=== PATIENT | male | born 1945 | race Caucasian/White ===

== ENCOUNTER → 2019-04-04 | Outpatient (CLI) | payer MEDICARE, OTHER ==
--- NOTE | 2019-04-04 15:45 | US ---
EXAMINATION TYPE: US kidneys/renal and bladder DATE OF EXAM: 04/04/2019 COMPARISON: CT 08/12/10 CLINICAL HISTORY: R31.1 microhematuria. EXAM MEASUREMENTS: Right Kidney: 13.3 x 6.9 x 4.9 cm Left Kidney: 14.9 x 6.8 x 6.3 cm Post Void Residual Volume: 204.6 mL Right Kidney: Multiple cysts throughout entire kidney. Largest = 8.1 x 5.1 x 3.7 cm Left Kidney: Multiple cysts throughout entire kidney. Largest = 9.3 x 9.1 x 9.1 cm Bladder: wnl Bilateral Jets seen: Yes Normal Post Void Residual: No. Possibly due to hyperdistended bladder prevoid. There is no evidence for hydronephrosis at this point in time. No nephrolithiasis is seen. No solid masses are identified. The urinary bladder is anechoic. Bilateral ureteral jets are seen. Difficult to evaluate renal texture due to large amounts of renal cysts bilaterally. IMPRESSION: Multiple cystic lesions seen bilaterally. No solid masses identified.
== END | disposition home or self-care (01) ==
LOC: RADUSWWP 15:03
PROVIDERS: ATTEND Urology
DX: N28.1 Cyst of kidney, acquired (principal)
CPT/HCPCS: 76770

== ENCOUNTER → 2019-08-19 | Outpatient (CLI) | payer MEDICARE | END | disposition home or self-care (01) | LOC: LABWHC1 13:57 | PROVIDERS: ATTEND Urology | DX: D40.0 Neoplasm of uncertain behavior of prostate (principal) | CPT/HCPCS: 36415; 84153 ==

== ENCOUNTER → 2021-08-06 | Outpatient (CLI) | payer MEDICARE ==
[2021-08-06 15:02] LABS: ALT 14 U/L (10-49); AST 23 U/L (14-35); Chol/HDL Ratio 3.25 Ratio; LDL Cholesterol,Calculated 72.2 mg/dL (0.0-131.0); VLDL Calculation 15.66 mg/dL (5.00-40.00)
== END | disposition home or self-care (01) ==
LOC: LABWHC1 09:43
PROVIDERS: ATTEND Internal Medicine Cardiovascular Disease
DX: I25.10 Atherosclerotic heart disease of native coronary artery without angina pectoris (principal); E78.5 Hyperlipidemia, unspecified
CPT/HCPCS: 36415; 80061; 84450; 84460

== ENCOUNTER → 2022-06-10 | Outpatient (CLI) | payer MEDICARE ==
[2022-06-10 19:02] LABS: INR 0.94 (0.90-1.11); Prothrombin Time 10.6 sec (9.9-11.9)
[2022-06-10 19:09] LABS: Basophils # (A) 0.04 X 10*3/uL (0.00-0.10); Basophils % (A) 0.8 %; Eosinophils # (A) 0.18 X 10*3/uL (0.04-0.35); Eosinophils % (A) 3.7 %; HCT 49.8 % (39.6-50.0); HGB 15.7 g/dL (13.0-17.0); Immature Grans, Automated 0.2 %; Lymphocytes # (A) 1.48 X 10*3/uL (0.90-5.00); Lymphocytes % (A) 30.1 %; MCH 29.1 pg (27.0-32.0); MCHC 31.5 g/dL (32.0-37.0); MCV 92.2 fL (80.0-97.0); Mean Platelet Volume 10.1 fL (9.5-12.2); Monocytes # (A) 0.43 X 10*3/uL (0.20-1.00); Monocytes % (A) 8.8 %; NRBC Per 100 WBC 0 /100 WBCS (0.0-0.0); Neutrophils # (A) 2.77 X 10*3/uL (1.80-7.70); Neutrophils % (A) 56.4 %; Platelet Count 263 X 10*3/uL (140-440); RDW 12.5 % (11.5-14.5); WBC 4.91 X 10*3/uL (4.50-10.00)
[2022-06-10 19:59] LABS: African American GFR (CKD) 83.8 (60.0-200.0); Anion Gap 9.7 mmol/L (10.00-18.00); BUN/Creat Ratio 14.8 Ratio (12.00-20.00); Blood Urea Nitrogen 14.8 mg/dL (9.0-27.0); Calcium 10.2 mg/dL (8.7-10.3); Carbon Dioxide 29.3 mmol/L (20.0-27.5); Non-African American GFR(CKD) 72.3 (60.0-200.0); Potassium 5.4 mmol/L (3.5-5.5)
== END | disposition home or self-care (01) ==
LOC: LABPAT 10:11
PROVIDERS: ATTEND Orthopaedic Surgery
DX: Z01.812 Encounter for preprocedural laboratory examination (principal); M16.11 Unilateral primary osteoarthritis, right hip; Z22.322 Carrier or suspected carrier of Methicillin resistant Staphylococcus aureus
CPT/HCPCS: 80048; 85025; 85610; 87070

== ENCOUNTER 2022-06-20 08:09 | Day surgery (SDC) | payer MEDICARE ==
[2022-06-15 15:30] VITALS: BMI 24.3
--- NOTE | 2022-06-19 19:46 | HP ---
HISTORY AND PHYSICAL DATE OF SURGERY: 06/20/2022. Kishor Gonzales is a 77-year-old patient seen with symptomatic right knee osteoarthritis. We discussed options for treatment. He elected to proceed with right total hip arthroplasty. DICTATION ENDS HERE MMODL / IJN: [id number] /
[~2022-06-20 08:09] MED LIST: ACETAMINOPHEN TAB 500 MG TAB PO PRN; DEXAMETHASONE SOD PHOSPHATE 4 MG/ML 1 ML VIAL IV ONE; LACTATED RINGERS 1,000 ML IV SCH; MELOXICAM 7.5 MG TAB PO PRN; MIDAZOLAM 2 MG/2 ML VIAL IV PRN; ONDANSETRON 4 MG/2 ML VIAL IVP ONE; TRANEXAMIC ACID IN NACL,ISO-OS 1,000 MG in SALINE 1 100ML.BAG IVPB PRN
--- NOTE | 2022-06-20 08:20 | HP ---
HISTORY AND PHYSICAL DATE OF SURGERY: 06/20/2022. HISTORY OF PRESENT ILLNESS: Kishor Gonzales is a 77-year-old gentleman seen with symptomatic right hip osteoarthritis. We discussed options for treatment. He elected to proceed with direct anterior right total hip arthroplasty. Consents obtained. Cardiac clearance was provided by Dr. Sotelo. PAST MEDICAL HISTORY: Hyperlipidemia, hypertension, cardiovascular disease. PAST SURGICAL HISTORY: Appendectomy, left total hip arthroplasty. DAILY MEDICATIONS: 1. Lisinopril. 2. Metoprolol. 3. Simvastatin. ALLERGIES: None reported. SOCIAL HISTORY: Denies tobacco use. PHYSICAL EXAMINATION: Evaluation of right hip, there is limited range of motion, severe pain, diffuse tenderness about the hip girdle. Hip impingement signs positive. Straight-leg raise is negative. His distal neurovascular exam is intact. RADIOGRAPHS: Radiographs of the right hip reveal severe osteoarthritic changes. IMPRESSION: 1. Right hip osteoarthritis. 2. Hypertension. 3. Hyperlipidemia. PLAN: Direct anterior right total hip arthroplasty. MMODL / IJN: [id number] /
[2022-06-20 08:29] VITALS: RESP 16
[2022-06-20] MEDS ORDERED: MIDAZOLAM 2 MG/2 ML VIAL IVP ONE (09:26)
[2022-06-20] MEDS ORDERED: fentaNYL (PF) 50 MCG/1 ML VIAL IVP ONE (09:26)
[2022-06-20] MEDS ORDERED: ePHEDrine 50 MG/ML 1 ML VIAL ONE (10:06)
[2022-06-20] MEDS ORDERED: GLYCOPYRROLATE 0.2 MG/ML 2 ML VIAL ONE (10:06)
[2022-06-20] MEDS ORDERED: ROCURONIUM 10 MG/ML (5 ML VIAL) IV ONE (10:06)
[2022-06-20] MEDS ORDERED: PHENYLEPHRINE-0.9% NACL SYG 1,000 MCG/10 ML SYRINGE ONE (10:06)
[2022-06-20] MEDS ORDERED: fentaNYL (PF) 50 MCG/ML 2 ML AMP ONE (10:06)
[2022-06-20] MEDS ORDERED: MIDAZOLAM 2 MG/2 ML VIAL ONE (10:06)
[2022-06-20] MEDS ORDERED: TRANEXAMIC ACID IN NACL,ISO-OS 1,000 MG/100 ML BAG ONE (10:06)
[2022-06-20] MEDS ORDERED: ROPIVACAINE 5 MG/ML 30 ML VIAL ONE (10:06)
[2022-06-20] MEDS ORDERED: NEOSTIGMINE 1 MG/ML 10 ML VIAL ONE (10:06)
[2022-06-20] MEDS ORDERED: PROPOFOL 10 MG/ML 20 ML VIAL IV ONE (10:06)
[2022-06-20] MEDS ORDERED: HYDROmorphone (PF) 1 MG/ML ONE (10:06)
[2022-06-20] MEDS ORDERED: ceFAZolin 1,000 MG in SODIUM CHLORIDE 0.9% 1,000 ML IRRIGATION ONE (10:37)
[2022-06-20] MEDS ORDERED: LACTATED RINGERS 1,000 ML IV ONE ×3 (10:38→15:34)
--- NOTE | 2022-06-20 10:45 | P.ANPRN ---
Procedure Note - Anesthesia - Nerve Block Performed Right Santy Single Time Out Performed: Yes ([id number]) Date of Procedure: 06/20/22 Procedure Start Time: Procedure Stop Time: Location of Patient: PreOp Indication: Acute Post-Operative Pain, Requested by Surgeon Specifically requested for management of pain by DrViral: Mark Benjamin Sedation Type: Sedate with meaningful contact maintained Preparation: Sterile Prep Position: Supine Catheter: None Needle Types: Pajunk Needle Gauge: 21 Ultrasound used to visualize needle placement: Yes Ultrasound used to observe medication spread: Yes Injectate: 0.5% Ropivacaine (see comment for volume) (30cc) Blood Aspirated: No Pain Paresthesia on Injection Noted: No Resistance on Injection: Normal Image Stored and Saved: Yes Events: Uneventful and Well Tolerated
[2022-06-20] MEDS ORDERED: ONDANSETRON 4 MG/2 ML VIAL IVP PRN (11:42)
[2022-06-20] MEDS ORDERED: HYDROmorphone 0.5 MG/0.5 ML SYRINGE IVP PRN ×3 (11:42)
[2022-06-20] MEDS ORDERED: HYDROcodone/APAP 5-325MG 1 EACH TAB PO PRN (11:42)
[2022-06-20] MEDS ORDERED: NALOXONE 0.4 MG/ML 1 ML VIAL IV PRN (11:42)
[2022-06-20] MEDS ORDERED: HYDROcodone/APAP 7.5-325MG 1 EACH TAB PO PRN (11:42)
--- NOTE | 2022-06-20 11:42 | P.OP ---
Date of Procedure: 06/20/22 Preoperative Diagnosis: Right hip osteoarthritis Postoperative Diagnosis: Right hip osteoarthritis Procedure(s) Performed: Direct anterior right total hip arthroplasty Implants: 1. Depuy Corail 125 standard collar size 11 press-fit femoral stem 2. Depuy pinnacle 54 mm press-fit acetabular shell 3. Depuy pinnacle neutral polyethylene acetabular liner 36 mm ID 54 mm OD 4. Biolox delta ceramic femoral head +1.5 36 mm Anesthesia: GETA, regional (erector spinae block) Surgeon: Mark Benjamin Taping Foreman #1: Roscoe Harris Estimated Blood Loss (ml): 95 Pathology: other (Femoral head) Condition: stable Disposition: PACU Indications for Procedure: 77-year-old gentleman seen with symptomatic right hip osteoarthritis. After having treatment options discussed, he elected to proceed with direct anterior right total hip arthroplasty. Operative Findings: see description of procedure Description of Procedure: The patient was taken to the operative suite. Patient underwent a general anesthetic by the department of anesthesia. Patient was then transferred to the [place] table. Patient was given preoperative IV antibiotics and TXA. Both lower extremities were placed in standard leg spars. The hip was then prepped and draped in the normal sterile orthopedic fashion. A standard anterior incision was made beginning 3 cm lateral and 1 cm distal to the ASIS extending 10 cm. Dissection was then carried down through the subcutaneous soft tissues down to the fascia overlying the tensor fascia kira. An incision was now made through the fascia. Careful dissection was taken down exposing the tensor fascia kira muscle. A Cobra retractor was now placed along the medial femoral neck and a second one along the lateral femoral neck. The venous circumflex vessels were now identified, cauterized and clipped. We identified the anterior hip capsule. An incision was made through the hip capsule along the lateral border. I performed a partial anterior capsulectomy. Retractors were now placed around the femoral neck itself. A femoral neck cut was now made with a sagittal saw. It was completed with an osteotome at the lateral neck area. The femoral head w as now removed without difficulty. The extremity was now rotated to 60 of external rotation. It was locked in position. Residual labrum was now debrided out. Serial reaming was performed of the acetabulum while Raymond MORALES assisted holding an anterior retractor for exposure. Once we reached the appropriate size and a trial was position and fit nicely. The appropriate size was now chosen opened and made available. It was introduced into the acetabulum without difficulty. The C-arm/fluoroscopy was now brought into the operative field. We made sure we had a true AP pelvic view. We now under direct C- arm/fluoroscopy introduced into the acetabular component with appropriate version and inclination. I held the cup in appropriate position well Raymond MORALES used a mallet to seat the acetabular component. I noted the component now to be well seated and stable. Acetabular cup introduce her was removed. The C-arm was pulled back. An appropriate liner was introduced and clicked into position. It was felt to be stable. At this point retractors were removed. The extremity was now placed into 140 external rotation with no traction. The leg was now dropped to the ground and adducted. Appropriate retractors were now positioned along the proximal femur. We also placed our femoral look into position. Additional capsular releasing was performed to gain access to the pr oximal femur. We now used a box osteotome. A canal finder was now utilized. Serial broaching was now performed with the assistance of Raymond MORALES tapping the broaches down with a mallet while held the broach in appropriate rotation and position. This was done until we reached the appropriate size with good overall rotational stability. Appropriate calcar planing was performed. A trial head/neck was placed into position. The hip was now reduced. The C- arm/fluoroscopy was brought back into the operative field. I obtained an AP pelvis demonstrating adequate leg length alignment as well as adequate positioning of the trial components. The C-arm/fluoroscopy was pulled back. Retractors were repositioned and the hip was dislocated. The leg was again taken down to the ground and adducted. Appropriate retractors were repositioned as well as the femoral hook. All trial components were removed. The femoral implant was opened along with the femoral head. The femoral implant was introduced on the appropriate handle into our pre-broached area. I held the component position well Raymond MORALES used a mallet to seat the femoral component. The femoral component was now noted to be well seated and stable.. The femoral head was introduced with good positioning and fixation noted. Retractors were now removed. The hip was now reduced. There appeared be good positioning of the hip confirmed on intraoperative fluoroscopy. Spot films were obtained to document this. A second gram of TXA was given. The deep and superficial soft tissues were infiltrated with local analgesic. Bipolar cautery had been utilized intermittently through the procedure for hemostasis. The wound was irrigated copiously with pulse lavage mechanical irrigation. The fascia was repaired with Vicryl suture. The subcutaneous soft tissues were repaired in layers with Vicryl suture. The skin was approximated with pernio/Dermabond. Sterile dressings were applied. Patient was then awakened, tr ansferred to a bed and taken to recovery in stable condition. Raymond MORALES assisted with the complex procedure.
--- NOTE | 2022-06-20 11:51 | XR ---
EXAMINATION TYPE: XR Hip Limited RT DATE OF EXAM: 06/20/2022 COMPARISON: NONE HISTORY: Postop TECHNIQUE: One view submitted. FINDINGS: There is postsurgical change in near anatomic alignment. There is soft tissue edema and emphysema. IMPRESSION: 1. Postoperative change. Appears in near-anatomic alignment.
--- NOTE | 2022-06-20 11:52 | FL ---
EXAMINATION TYPE: FL guidance operating room DATE OF EXAM: 06/20/2022 HISTORY: Fluoroscopy time 20 seconds of fluoroscopy provided. IMPRESSION: 1. Fluoroscopy time.
[2022-06-20 12:08] VITALS: TEMP 97
[2022-06-20] MEDS: HYDROmorphone 0.5 MG/0.5 ML SYRINGE IVP PRN ×4 (12:10→12:43)
[2022-06-20] MEDS ORDERED: ceFAZolin 10 GM VIAL IVPB ONE (14:33)
[2022-06-20] MEDS ORDERED: METOCLOPRAMIDE 5 MG/ML 2 ML VIAL ONE (15:56)
[2022-06-20] MEDS ORDERED: DEXAMETHASONE SOD PHOSPHATE 4 MG/ML 1 ML VIAL IVP ONE (16:00)
[2022-06-20] MEDS ORDERED: METOCLOPRAMIDE 5 MG/ML 2 ML VIAL IVP ONE (16:00)
[2022-06-20 16:39] VITALS: BP 137/80; PULSE 57
== END 2022-06-20 16:44 | disposition home health service (06) ==
LOC: OR 08:09
PROVIDERS: ATTEND Orthopaedic Surgery
DX: M16.11 Unilateral primary osteoarthritis, right hip (principal); I10 Essential (primary) hypertension; I25.10 Atherosclerotic heart disease of native coronary artery without angina pectoris; E78.5 Hyperlipidemia, unspecified; Z79.02 Long term (current) use of antithrombotics/antiplatelets; Z79.891 Long term (current) use of opiate analgesic; Z79.899 Other long term (current) drug therapy; Z96.642 Presence of left artificial hip joint; Z98.890 Other specified postprocedural states; G89.18 Other acute postprocedural pain
CPT/HCPCS: 27130; 64447 ×2; 97530; 97161; 86900; 86901; 86850; 88300; 73501; C1776; J2250; J1100; J2710; J2765; J0690 ×2; J2405; J3010 ×2; J1170 ×2; J2795; J2370; J2704

== ENCOUNTER 2023-04-04 08:58 | Day surgery (SDC) | payer MEDICARE ==
[~2023-04-04 08:58] MED LIST changes: -ACETAMINOPHEN TAB 500 MG TAB PO PRN; -DEXAMETHASONE SOD PHOSPHATE 4 MG/ML 1 ML VIAL IV ONE; +LIDOCAINE 1% (10MG/ML) FOR IV START INTRADERMA PRN; -MELOXICAM 7.5 MG TAB PO PRN; -MIDAZOLAM 2 MG/2 ML VIAL IV PRN; -ONDANSETRON 4 MG/2 ML VIAL IVP ONE; -TRANEXAMIC ACID IN NACL,ISO-OS 1,000 MG in SALINE 1 100ML.BAG IVPB PRN
[2023-04-04] MEDS ORDERED: LACTATED RINGERS 1,000 ML IV ONE (09:29)
[2023-04-04 09:37] VITALS: TEMP 97.5
[2023-04-04] MEDS ORDERED: PROPOFOL 10 MG/ML 20 ML VIAL IV ONE (09:59)
[2023-04-04] MEDS ORDERED: LIDOCAINE 1% INJ 10MG/ML (20 ML MDV) ONE (09:59)
--- NOTE | 2023-04-04 10:01 | P.GSHP ---
History of Present Illness H&P Date: 04/04/23 Chief Complaint: GERD 77-year-old male here for EGD. Patient had some recent studies and states he was told to have an upper endoscopy because of an abnormality seen on PET scan. Mild GERD symptoms at times. No dysphagia. No pain. Past Medical History Past Medical History: Chest Pain / Angina, GERD/Reflux, Hyperlipidemia, Hypertension, Osteoarthritis (OA) Additional Past Medical History / Comment(s): Episode of angina 9 yrs ago. Hx Migraines yrs ago, none since late 30's/early 40's. Hx skin cancer on forehead History of Any Multi-Drug Resistant Organisms: None Reported Past Surgical History: Joint Replacement Additional Past Surgical History / Comment(s): skin cancer removed from forehead, bilateral cataracts removed, bilat. THR - Rt. THR most recent 07/04 Past Anesthesia/Blood Transfusion Reactions: No Reported Reaction Smoking Status: Former smoker - Past Family History Mother Family Medical History: No Reported History Additional Family Medical History / Comment(s): " from blood clot when getting stent put in". Medications and Allergies Home Medications Medication Instructions Recorded Confirmed Type Aspirin [Adult Low Dose Aspirin EC] 81 mg PO DIRECTED 06/15/22 03/31/23 History Cholecalciferol [Vitamin D3 (25 25 mcg PO DIRECTED 06/15/22 03/31/23 History Mcg = 1000 Iu)] Metoprolol Tartrate 12.5 mg PO BID 06/15/22 03/31/23 History Simvastatin 40 mg PO DAILY 06/15/22 03/31/23 History lisinopriL [Zestril] 5 mg PO DAILY 03/31/23 03/31/23 History Allergies Allergy/AdvReac Type Severity Reaction Status Date / Time No Known Allergies Allergy Verified 03/31/23 10:16 Surgical - Exam Vital Signs Temp Pulse Resp BP Pulse Ox 97.5 F L 55 L 18 168/90 96 04/04/23 09:18 04/04/23 09:18 04/04/23 09:18 04/04/23 09:18 04/04/23 09:18 Physical exam: General: Well-developed, well-nourished HEENT: Normocephalic, sclerae nonicteric Abdomen: Nontender, nondistended Extremities: No edema Neuro: Alert and oriented Assessment and Plan (1) GERD (gastroesophageal reflux disease) Narrative/Plan: Will proceed with upper endoscopy Current Visit: Yes Status: Acute Code(s): K21.9 - GASTRO-ESOPHAGEAL REFLUX DISEASE WITHOUT ESOPHAGITIS SNOMED Code(s): 587408591
--- NOTE | 2023-04-04 10:17 | P.PCN ---
Date of Procedure: 04/04/23 Procedure(s) Performed: Preoperative Dx: GERD Postoperative Dx: Gastritis, hiatal hernia, erosive distal esophagitis, gastric polyps Procedure: EGD with Bx Anesthesia: Sedation Endoscopist: Dr. Olson Specimens: Antrum, distal esophagus, gastric polyp Endoscopic Procedure: The patient was on the endoscopy table in the left decubitus position. The Olympus gastroscope was inserted into the oropharynx and passed under direct visualization to the region of the third portion of the duodenum. From that point the scope was slowly withdrawn inspecting all surfaces carefully. There were no neoplastic inflammatory or polypoid lesions throughout the duodenum. The pylorus was widely patent. The stomach was carefully inspected. There was diffuse gastritis present. Multiple small polyps were seen. A biopsy of the antrum and of the largest polyp was taken. Retroflexion revealed a moderate sized hiatal hernia. The GE junction was 2-3 cm above the diaphragmatic hiatus. I would estimate about 10-20% of the stomach was above the diaphragm. The distal 4 cm of the esophagus revealed erosive esophagitis. This was circumferential. There was some slight nodularity. Multiple biopsies were taken to exclude malignancy. Remainder the esophagus appeared normal. The patient was then taken to the recovery room in stable condition per anesthesia guidelines. Recommendations: This await biopsy results. Begin aggressive antiacid therapy. Will require repeat EGD in 3-6 months.
[2023-04-04] MEDS ORDERED: IV FLUID CONTINUATION 300 ML IV ONE (10:28)
[2023-04-04 10:36] VITALS: RESP 16
[2023-04-04 10:56] VITALS: BP 117/77; PULSE 51
== END 2023-04-04 11:03 | disposition home or self-care (01) ==
LOC: ORWHC2ENDO 08:58
PROVIDERS: ATTEND Surgery
DX: K29.50 Unspecified chronic gastritis without bleeding (principal); K44.9 Diaphragmatic hernia without obstruction or gangrene; K21.00 Gastro-esophageal reflux disease with esophagitis, without bleeding; K22.10 Ulcer of esophagus without bleeding; E78.5 Hyperlipidemia, unspecified; I10 Essential (primary) hypertension; M19.90 Unspecified osteoarthritis, unspecified site; Z87.891 Personal history of nicotine dependence; Z79.82 Long term (current) use of aspirin; Z79.899 Other long term (current) drug therapy
CPT/HCPCS: 88305; 88312; 43239; J2001; J2704

== ENCOUNTER 2023-05-30 20:31 | Emergency (ER) | payer MEDICARE ==
[2023-05-30 20:37] VITALS: TEMP 98
[2023-05-30 21:04] LABS: Basophils % (A) 1 %; Eosinophils # (A) 0.4 k/uL (0-0.7); Eosinophils % (A) 7 %; HCT 45.1 % (39.0-53.0); HGB 15.2 gm/dL (13.0-17.5); Lymphocytes # (A) 1.9 k/uL (1.0-4.8); Lymphocytes % (A) 34 %; MCH 29.8 pg (25.0-35.0); MCHC 33.7 g/dL (31.0-37.0); MCV 88.2 fL (80.0-100.0); Mean Platelet Volume 7.6; Monocytes # (A) 0.4 k/uL (0-1.0); Monocytes % (A) 7 %; Neutrophils # (A) 2.7 k/uL (1.3-7.7); Neutrophils % (A) 49 %; Platelet Count 209 k/uL (150-450); RBC 5.11 m/uL (4.30-5.90); RDW 12.6 % (11.5-15.5); WBC 5.5 k/uL (3.8-10.6)
[2023-05-30] MEDS ORDERED: ASPIRIN 81 MG PO STA (21:04)
[2023-05-30 21:14] LABS: ALT 24 U/L (4-49); AST 33 U/L (17-59); African American GFR (CKD) 78 (>60 ml/min/1.73 sqM); Albumin 4.3 g/dL (3.5-5.0); Alkaline Phosphatase 115 U/L (38-126); Anion Gap 13 mmol/L; Blood Urea Nitrogen 17 mg/dL (9-20); Calcium 9.4 mg/dL (8.4-10.2); Carbon Dioxide 23 mmol/L (22-30); Chloride 104 mmol/L (98-107); Glucose 129 mg/dL (74-99); Magnesium 1.9 mg/dL (1.6-2.3); Non-African American GFR(CKD) 67 (>60 ml/min/1.73 sqM); Potassium 3.8 mmol/L (3.5-5.1); Sodium 140 mmol/L (137-145); Total Bilirubin 0.5 mg/dL (0.2-1.3); Total Protein 7.4 g/dL (6.3-8.2)
--- NOTE | 2023-05-30 21:34 | XR ---
EXAMINATION TYPE: XR chest 2V DATE OF EXAM: 05/30/2023 9:28 PM CLINICAL INDICATION:Male, 78 years old with history of Chest Pain; [facility] COMPARISON: None. TECHNIQUE: XR chest 2V Frontal and lateral views of the chest. FINDINGS: Lungs/Pleura: Hazy left lung opacities are identified which obscures the diaphragm. No evidence of pl eural effusion or pneumothorax. Pulmonary vascularity: Unremarkable. Heart/mediastinum: Cardiomediastinal silhouette is unremarkable. Musculoskeletal: No acute osseous pathology. IMPRESSION: Left lung base airspace disease. Concerning for infectious/inflammatory process.
[2023-05-30 21:47] LABS: INR 0.9 (<1.2); Partial Thromboplastin Time 26.2 sec (22.0-30.0); Prothrombin Time 10.4 sec (10.0-12.5)
--- NOTE | 2023-05-30 22:23 | ED ---
Chest Pain HPI - General Chief Complaint: Chest Pain Stated Complaint: chest pain,dizziness,tingling Time Seen by Provider: 05/30/23 20:59 Source: patient Mode of arrival: ambulatory Limitations: no limitations - History of Present Illness Initial Comments: This 78-year-old male presents with complaint of some high blood pressure. He states that his blood pressure was elevated to 171/98. This seemed to make him nervous and then he felt slightly dizzy. Upon driving to the ER he states that he developed some right-sided chest pain which was pressure-like in nature. He normally does take blood pressure medication but states that he took it earlier this morning at 5 AM instead of 7 AM. He then forgot to take his 6 PM the pressure medication. He states that his last routine stress test was just several months ago and was normal. He denies any shortness of breath. There is no leg pain or swelling or history DVT or PE. He denies any other complaints or modifying factors. - Related Data Home Medications Medication Instructions Recorded Confirmed Aspirin [Adult Low Dose Aspirin EC] 81 mg PO DIRECTED 06/15/22 03/31/23 Cholecalciferol [Vitamin D3 (25 25 mcg PO DIRECTED 06/15/22 03/31/23 Mcg = 1000 Iu)] Metoprolol Tartrate 12.5 mg PO BID 06/15/22 03/31/23 Simvastatin 40 mg PO DAILY 06/15/22 03/31/23 lisinopriL [Zestril] 5 mg PO DAILY 03/31/23 03/31/23 Previous Rx's Medication Instructions Recorded Omeprazole [PriLOSEC] 40 mg PO -BRKFST #90 cap 04/04/23 Allergies Allergy/AdvReac Type Severity Reaction Status Date / Time No Known Allergies Allergy Verified 03/31/23 10:16 Review of Systems ROS Statement: Those systems with pertinent positive or pertinent negative responses have been documented in the HPI. ROS Other: All systems not noted in ROS Statement are negative. Past Medical History Past Medical History: Chest Pain / Angina, GERD/Reflux, Hyperlipidemia, Hypertension, Osteoarthritis (OA) Additional Past Medical History / Comment(s): Episode of angina 9 yrs ago. Hx Migraines yrs ago, none since late 30's/early 40's. Hx skin cancer on forehead History of Any Multi-Drug Resistant Organisms: None Reported Past Surgical History: Joint Replacement Additional Past Surgical History / Comment(s): skin cancer removed from forehead, bilateral cataracts removed, bilat. THR - Rt. THR most recent 07/04 Past Anesthesia/Blood Transfusion Reactions: No Reported Reaction Past Psychological History: No Psychological Hx Reported Smoking Status: Former smoker - Past Family History Mother Family Medical History: No Reported History Additional Family Medical History / Comment(s): " from blood clot when getting stent put in". General Exam - General Exam Comments Initial Comments: GENERAL: The patient is well nourished and well hydrated. VITAL SIGNS: Heart rate, blood pressure, respiratory rate reviewed as recorded in nurse's notes. EYES: Pupils are round and reactive. Extraocular movements are intact. No conjunctival / lid redness or swelling. ENT: No external evidence of injury, swelling, or ecchymosis. Airway is patent. Throat is clear. NECK: Nontender. No swelling or evidence of injury. No subcutaneous emphysema. Trachea is midline. No thyroid mass. HEART: Regular rate and rhythm. Good peripheral pulses. LUNGS/CHEST: Breath sounds clear and equal bilaterally. No rales, rhonchi, or wheezes. No ecchymosis, subcutaneous emphysema, or tenderness. ABDOMEN: Abdomen soft without tenderness. No palpable masses or organomegaly. No peritoneal signs. No abdominal wall swelling or ecchymosis. EXTREMITIES: No extremity tenderness. Normal muscle tone and function. No thoracolumbar tenderness. NEUROLOGIC: Sensation is grossly intact. Cranial nerve exam reveals face is symmetrical, tongue is midline, speech is clear. SKIN: No abrasions or ecchymosis is noted. No induration or masses noted. PSYCHIATRIC: Alert and oriented. Appropriate behavior and judgment. Limitations: no limitations Course Vital Signs 05/30/23 20:31 Temperature 98 F Pulse Rate 75 Respiratory 16 Rate Blood Pressure 176/106 O2 Sat by Pulse 98 Oximetry Chest Pain [facility] - [facility] The patient was seen and examined. All diagnostics were reviewed. The EKG shows a normal sinus rhythm at a rate of 68. There is occasional nonspecific ST and T wave changes noted per my interpretation. Intervals are normal. The laboratory does not show any acute significant abnormalities. The troponin is negative. The chest x-ray shows possible airspace disease on the left base. Patient states that he's had this extensively worked up in the past and they did not find any acute abnormalities. He's had a computed tomography scan and a co uple up at scans over time for this. He did take 4 aspirin prior to arrival no additional aspirin is given. On recheck, he is feeling markedly improved. He is denying any further symptomatology. The dizziness has resolved. His blood pressure still slightly elevated but it is felt as though he should take his home blood pressure medication when he gets home. Admission for further workup is offered and discussed the patient would prefer not to be admitted. He does follow up with Dr. Sotelo cardiology and he is advised to follow up closely with his doctor and also his primary care. Return parameters are discussed as well. He is counseled regarding hypertension and need for home monitoring and to bring this into his doctors for further adjustment of medications. Was pt. sent in by a medical professional or institution ([facility], [facility], urgent care, hospital, or intermediate...) When possible be specific @ -No Did you speak to anyone other than the patient for history (EMS, parent, family, police, friend...)? What history was obtained from this source @ -Additional history is given per . Did you review nursing and triage notes (agree or disagree)? Why? @ -I reviewed and agree with nursing and triage notes Were old charts reviewed (outside hosp., previous admission, EMS record, old EKG, old radiological studies, urgent care reports/EKG's, intermediate records)? Report findings @ -Old records were reviewed. Differential Diagnosis (chest pain, altered mental status, abdominal pain women, abdominal pain men, vaginal bleeding, weakness, fever, dyspnea, syncope, headache, dizziness, GI bleed, back pain, seizure, CVA, palpatations, mental health, musculoskeletal)? @ -not applicable EKG interpreted by me (3pts min.). @ -As above X-rays interpreted by me (1pt min.). @ -As above CT interpreted by me (1pt min.). @ -None done U/S interpreted by me (1pt. min.). @ -None done What testing was considered but not performed or refused? (CT, X-rays, U/S, labs)? Why? @ -None What meds were considered but not given or refused? Why? @ -None Did you discuss the management of the patient with other professionals (professionals i.e. , PA, HAND STAP[employer]ER, lab, RT, psych nurse, social work associate, escort car driver, teacher, artillery officer, nurse case management)? Give summary @ -No Was smoking cessation discussed for >3mins.? @ -No Was critical care preformed (if so, how long)? @ -No Were there social determinants of health that impacted care today? How? (Homelessness, low income, unemployed, alcoholism, drug addiction, transportation, low edu. Level, literacy, decrease access to med. care, care home, rehab)? @ -No Was there de-escalation of care discussed even if they declined (Discuss DNR or withdrawal of care, Hospice)? DNR status @ -No What co-morbidities impacted this encounter? (DM, HTN, Smoking, COPD, CAD, Cancer, CVA, ARF, Chemo, Hep., AIDS, mental health diagnosis, sleep apnea, morbid obesity)? @ -Hypertension Was patient admitted / discharged? Hospital course, mention meds given and route, prescriptions, significant lab abnormalities, going to OR and other pertinent info. @ -Discharged, please see above. Undiagnosed new problem with uncertain prognosis? @ -No Drug Therapy requiring intensive monitoring for toxicity (Heparin, Nitro, Insulin, Cardizem)? @ -No Were any procedures done? @ -No Diagnosis/symptom? @ -Chest pain, dizziness, hypertension Acute, or Chronic, or Acute on Chronic? @ -Acute on chronic Uncomplicated (without systemic symptoms) or Complicated (systemic symptoms)? @ -Uncomplicated Side effects of treatment? @ -No Exacerbation, Progression, or Severe Exacerbation? @ -No Poses a threat to life or bodily function? How? (Chest pain, [place], CA, pneumonia, PE, COPD, DKA, ARF, appy, cholecystitis, CVA, Diverticulitis, Homicidal, Suicidal, threat to staff... and all critical care pts) @ -No Disposition Clinical Impression: Chest pain, Hypertension, Dizziness Disposition: HOME SELF-CARE Condition: Good Instructions (If sedation given, give patient instructions): Chest Pain (ED), Hypertension (ED) Is patient prescribed a controlled substance at d/c from ED?: No Referrals: Ben Garcia [Primary Care Provider] - 1-2 days Time of Disposition: 22:23
[2023-05-30 23:14] VITALS: BP 185/91; PULSE 54; RESP 18
== END 2023-05-30 22:53 | disposition home or self-care (01) ==
LOC: EC 20:31
DX: R07.89 Other chest pain (principal); R42 Dizziness and giddiness; I10 Essential (primary) hypertension; K21.9 Gastro-esophageal reflux disease without esophagitis; E78.5 Hyperlipidemia, unspecified; Z87.891 Personal history of nicotine dependence; Z79.899 Other long term (current) drug therapy; Z79.82 Long term (current) use of aspirin
CPT/HCPCS: 36415; 71046; 80053; 83735; 84484; 85025; 85610; 85730; 93005; 99285

== ENCOUNTER 2023-11-14 11:53 | Day surgery (SDC) | payer MEDICARE ==
[2023-11-10 10:34] VITALS: BMI 25.2
[2023-11-14 12:20] VITALS: TEMP 97.3
[2023-11-14] MEDS: LIDOCAINE 1% (10MG/ML) FOR IV START INTRADERMA PRN (12:24)
[2023-11-14] MEDS: LACTATED RINGERS 1,000 ML IV SCH (12:25)
[2023-11-14] MEDS: IV FLUID CONTINUATION 1,000 ML IV ONE (12:25)
[2023-11-14] MEDS ORDERED: LIDOCAINE 1% INJ 10MG/ML (20 ML MDV) ONE (12:39)
[2023-11-14] MEDS ORDERED: PROPOFOL 10 MG/ML 20 ML VIAL IV ONE (12:39)
--- NOTE | 2023-11-14 12:52 | P.GSHP ---
History of Present Illness H&P Date: 11/14/23 Chief Complaint: GERD 78-year-old male here for EGD. Patient underwent EGD last March and was found to have severe esophagitis. Patient was started on aggressive antiacid therapy and has done better. Here for recheck. Past Medical History Past Medical History: Cancer, Chest Pain / Angina, GERD/Reflux, Hyperlipidemia, Hypertension, Osteoarthritis (OA) Additional Past Medical History / Comment(s): Episode of angina 9 yrs ago. Hx migraines yrs ago, none since late 30s/early 40s. Hx skin cancer on forehead. History of Any Multi-Drug Resistant Organisms: None Reported Past Surgical History: Joint Replacement, Tonsillectomy Additional Past Surgical History / Comment(s): Skin cancer removed from forehead, bilateral cataracts removed, bilateral total hip replacements. Past Anesthesia/Blood Transfusion Reactions: No Reported Reaction, Motion Sickness Smoking Status: Former smoker - Past Family History Mother Family Medical History: Pulmonary Embolus Additional Family Medical History / Comment(s): " from blood clot when getting stent put in". Medications and Allergies Home Medications Medication Instructions Recorded Confirmed Type Aspirin [Adult Low Dose Aspirin EC] 81 mg PO DIRECTED 06/15/22 11/10/23 History Cholecalciferol [Vitamin D3 (25 25 mcg PO DAILY 06/15/22 11/10/23 History Mcg = 1000 Iu)] Metoprolol Tartrate 12.5 mg PO BID 06/15/22 11/10/23 History Simvastatin 40 mg PO DAILY 06/15/22 11/10/23 History lisinopriL [Zestril] 5 mg PO QAM 03/31/23 11/10/23 History Omeprazole [PriLOSEC] 40 mg PO -BRKFST #90 cap 04/04/23 11/10/23 Rx Allergies Allergy/AdvReac Type Severity Reaction Status Date / Time No Known Allergies Allergy Verified 11/10/23 09:36 Surgical - Exam Vital Signs Temp Pulse Resp BP Pulse Ox 97.3 F L 53 L 16 175/93 97 11/14/23 12:17 11/14/23 12:17 11/14/23 12:17 11/14/23 12:17 11/14/23 12:17 Physical exam: General: Well-developed, well-nourished HEENT: Normocephalic, sclerae nonicteric Abdomen: Nontender, nondistended Extremities: No edema Neuro: Alert and oriented Assessment and Plan (1) GERD (gastroesophageal reflux disease) Narrative/Plan: Will proceed with EGD at this time. Current Visit: No Status: Acute Code(s): K21.9 - GASTRO-ESOPHAGEAL REFLUX DISEASE WITHOUT ESOPHAGITIS SNOMED Code(s): 106134294
--- NOTE | 2023-11-14 12:59 | P.PCN ---
Date of Procedure: 11/14/23 Procedure(s) Performed: Preoperative Dx: GERD Postoperative Dx: Gastritis, distal esophagitis, hiatal hernia, gastric polyps Procedure: EGD with Bx Anesthesia: Sedation Endoscopist: Dr. Olson Specimens: Antrum, gastric polyps, distal esophagitis Endoscopic Procedure: The patient was on the endoscopy table in the left decubitus position. The Olympus gastroscope was inserted into the oropharynx and passed under direct visualization to the region of the third portion of the duodenum. From that point the scope was slowly withdrawn inspecting all surfaces carefully. There were no neoplastic inflammatory or polypoid lesions throughout the duodenum. The pylorus was widely patent. The stomach was car efully inspected. There was mild gastritis present. A biopsy was taken of the antrum. Patient had multiple small gastric polyps 1 of which was biopsied. Retroflexion revealed a moderate-sized hiatal hernia. The GE junction was present 4 cm above the diaphragmatic hiatus. At the GE junction there was a noncircumferential linear erosion measuring about 1 cm in length. Biopsies were taken. This looks significantly improved from previous exam. There was no evidence of stricture formation. The remainder the esophagus appeared normal. The patient was then taken to the recovery room in stable condition per anesthesia guidelines. Recommendations: Await biopsy results. Continue antiacids.
[2023-11-14 13:25] VITALS: BP 130/75; PULSE 51; RESP 14
== END 2023-11-14 13:41 | disposition home or self-care (01) ==
LOC: ORWHC2ENDO 11:53
PROVIDERS: ATTEND Surgery
DX: K21.00 Gastro-esophageal reflux disease with esophagitis, without bleeding (principal); E78.5 Hyperlipidemia, unspecified; I10 Essential (primary) hypertension; K31.7 Polyp of stomach and duodenum; K44.9 Diaphragmatic hernia without obstruction or gangrene; M19.90 Unspecified osteoarthritis, unspecified site; Z85.828 Personal history of other malignant neoplasm of skin; Z87.891 Personal history of nicotine dependence; Z79.899 Other long term (current) drug therapy
CPT/HCPCS: 88305; 43239; J2001; J2704